=== PATIENT | female | born 1960 | race Caucasian/White ===

== ENCOUNTER 2016-08-02 12:11 | Inpatient (IN) | payer BC ==
--- NOTE | ~2016-08-02 | DS ---
Unit #: [id number] #: [id number] Patient: JESSE KRUSE [id number] [address] [address] [id number] I MR#: [id number] NAME: JESSE KRUSE ROOM: [facility] Age: 55 Sex: F Admission Date: 08/02/2016 : 1960 Discharge Date: 08/08/2016 Attending Physician: Carla Aguilera M.D. Primary Care Physician: Priya Sarmiento M.D. DISCHARGE SUMMARY REASON FOR ADMISSION 1. Acute on chronic respiratory failure. 2. Pneumonia. 3. COPD exacerbation. 4. Hyperglycemia. HISTORY/HOSPITAL COURSE This is a pleasant lady, recently in the hospital approximately 2 months ago, who has had chronic cough with vocal cord polyps. No fevers. No chills. Positive for chest pain. Presented to the emergency department, had a chest x-ray that showed left base atelectasis. No pulmonary embolism but left base persistent consolidation. Procalcitonin 0.14. The patient was admitted to the hospital for hospital-acquired pneumonia. The patient was placed on cefepime and tobramycin. The patient had a sputum sample, which was negative for culture; therefore, the patient will be discharged to finish up the course on Omnicef 300 mg p.o. b.i.d. DISCHARGE MEDICATIONS 1. Albuterol sulfate q.4 hours neb. 2. Combivent 1 puff q.i.d. 3. Pulmicort 0.5 mg b.i.d. 4. Prednisone 40 mg x1 day, 30 mg x 2 days, 20 mg x2 days, 10 mg x2 days. 5. Gabapentin 300 mg daily. 6. Topamax 50 mg b.i.d. 7. Bupropion 450 mg daily. 8. Fluoxetine 50 mg daily. 9. Lidocaine patch 5% daily. 10. Loxapine 50 mg at bedtime. 11. Promethazine DM 1 teaspoon q.8 hours p.r.n. 12. Klonopin 0.5 mg t.i.d. p.r.n. anxiety. 13. Diltiazem 60 mg b.i.d. 14. Insulin 40 units subcu a.c. 15. Lantus 90 units subcu at bedtime. 16. Aspirin 81 mg daily. 17. Hydrocodone/acetaminophen 5/325 q.6 hours as needed for pain. 18. Omnicef 300 mg p.o. b.i.d. for 3 days. DIET Constant carb diet. ACTIVITY As tolerated. Unit #: [id number] #: [id number] Patient: JESSE KRUSE FOLLOW-UP Follow up with Dr. Florez's office in approximately 2 to 3 weeks. Dictated by... Romaine Colón TD: 08/09/2016 11:45 JOB #: [id number] DISCHARGE SUMMARY Page 1 of 1 X Eben Aguilera MD X DISCHARGE SUMMARY
--- NOTE | ~2016-08-02 | HP ---
Unit #: [id number] #: [id number] Patient: JESSE KRUSE [id number] [id number] [facility]. [place], [place] [address] [id number] I MR#: [id number] NAME: JESSE KRUSE ROOM: 323 Age: 55 Sex: F Admission Date: 08/02/2016 : 1960 Attending Physician: Carla Aguilera M.D. Primary Care Physician: Priya Sarmiento M.D. HISTORY AND PHYSICAL Ms. Kruse is a pleasant lady, recently here in the hospital approximately two months ago. She has had chronic cough for that time. The patient had vocal cord polyps. They have been worse for approximately two months. No fevers, no chills, worsening cough, tightness and patient has been having chest pain. Therefore, she presented to the emergency room. She was found to have a chest x-ray, which showed left base atelectasis, mediastinal windows on CT PE showed no pulmonary embolus; however, a persistent consolidation in the left lung base is concerning for pneumonia, this was present on the previous examination. Lack of air bronchograms has progressed. Right lung infiltrate has cleared. The procalcitonin is 0.14, which is consistent with a mild infection. The cardiac enzymes are negative. INR is 1.1 so the patient is admitted for hospital acquired pneumonia. PAST MEDICAL HISTORY Significant for gastric outlet obstruction, bronchial asthma, hypertension, hyperlipidemia, depression, bipolar, neuropathic pain and diabetes. PAST SURGICAL HISTORY Significant for cardiac catheterization, cholecystectomy, hysterectomy and . FAMILY HISTORY Noncontributory. SOCIAL HISTORY No history of alcohol. No history of polysubstance use. Patient is noncontributory. She is a never smoker. No history of tobacco smoke. ALLERGIES Penicillin and sulfa. HOME MEDICATIONS 1. Albuterol neb every 4 hours. 2. Combivent 4 times a day. 3. Prednisone taper. 4. Gabapentin 600 mg a daily. 5. Lidocaine 1 patch topically daily. 6. Doxycycline 100 mg twice daily. 7. Promethazine 1 tsp every 8 hours. 8. Cardizem 60 mg twice daily. 9. Pulmicort 0.5 mg twice daily. 10. Topamax 50 mg twice daily. Unit #: [id number] #: [id number] Patient: JESSE KRUSE 11. Wellbutrin 450 mg twice daily. 12. Prozac 40 mg daily. 13. Loxapine 50 mg at bedtime. 14. Aspirin 81 mg daily. 15. Hydrocodone/acetaminophen 1 tablet every 6 hours. 16. Klonopin 0.5 mg 3 times a day. 17. Novolin 70/30 40 units three times a day before meals. 18. Lantus 90 units subcu at bedtime. PHYSICAL EXAMINATION VITAL SIGNS: Temperature 97.2, pulse 102, respiratory rate 18, blood pressure 160/92, satting 94% 2 L, ins and outs not recorded. HEENT: Extraocular movements are intact. CHEST: Clear to auscultation bilaterally. CARDIOVASCULAR: Regular rate. No gallop. ABDOMEN: Soft, nontender, nondistended. EXTREMITIES: Obese extremity shows no significant edema. Pulses are easily palpable. DIAGNOSTIC STUDIES LABORATORY STUDIES: BNP is 134. Sodium 137, potassium 3.7, BUN and creatinine 12 and 1.0. So CBC shows platelets of 317, BUN and creatinine 11.2/32.7. ASSESSMENT AND PLAN Pneumonia: This may be chronic but I believe we need to treat as a community acquired pneumonia. If we are unable to get a sputum culture, then we may need bronchoscopy eventually to rule out MAC and other associated illnesses. Dictated by Romaine Colón/sarah TD: 08/03/2016 05:28 JOB #: [id number] HISTORY AND PHYSICAL Page 1 of 1 X Eben Aguilera MD X HISTORY AND PHYSICAL
--- NOTE | ~2016-08-02 | CT16 ---
[facility] A Service of [facility] & [facility] RADIOLOGY TEXT RESULTS PATIENT: JESSE KRUSE [facility] [id number] : [birth year] UNIT #: [id number] AGE: [address]: Eben Aguilera MD SEX: F ORDER DR: [id number] [facility] [address] [facility] [address] [address]. [place], [place] [address] [id number] E MR#: [id number] Acc #: [id number] NAME: JESSE KRUSE : 1960 SEX: F STUDY DATE/TIME: 08/02/2016 14:12 UNIT: [facility] ROOM: STUDY DESCRIPTION: CT Angio Chest for PE Attending Physician: Neema Portillo M.D. Ordering Physician: Neema Portillo M.D. Primary Care Physician: Priya Sarmiento M.D. MEDICAL IMAGING REPORT This report is preliminary unless electronic signature is present EXAN CT chest with contrast with CT angiography HISTORY Shortness breath and nonproductive cough since 06/04/2016. Not improving. TECHNIQUE Axial images were obtained through the chest with contrast. 80 mL of Isovue was used. CT angiography was performed with thick sliding MIPs in the sagittal coronal projections. The study is compared to a previous examination from 06/07/[address] exam was performed with one or more of the following radiation dose reduction techniques: automatic exposure control, adjustment of mA and/or kV according to patient size, and iterative reconstruction. FINDINGS Chest images at mediastinal window show good filling of the pulmonary arteries. There are no pulmonary artery filling defects to suggest emboli. There is no evidence of pleural or pericardial fluid. There is no evidence of mediastinal or hilar adenopathy. Lung window imaging shows persistent alveolar consolidation at the left lung base posteromedially with loss of air bronchograms and mucous plugging of distal bronchi. The infiltrate and small effusion at the right base seen on the previous examination has resolved. The endobronchial mucus plugging at the left base is new since the previous CT from 06/07/2016. Both upper lung heredia are clear. IMPRESSION Persistent consolidation left lung base suspicious for pneumonia or STS. [facility] A Service of [facility] & [facility] RADIOLOGY TEXT RESULTS PATIENT: JESSE KRUSE LOCATION: [facility] [id number] : [birth year] UNIT #: [id number] AGE: [address]: Eben Aguilera MD SEX: F ORDER DR: chronic atelectasis with mucous plugging of lower lobe bronchi to this area at the left base. The infiltrate was present on the previous examination. The lack of air bronchograms is a new finding since the previous exam. The right lung base infiltrate and effusion have cleared since the previous scan of 06/07/2016. No evidence pulmonary embolism. Dictated by... Mrerick Bui M.D. THIS IS AN ELECTRONICALLY VERIFIED REPORT Merrick Bui M.D. at 08/02/2016 6:48 PM RLF/pa TD: 08/02/2016 15:45 JOB #: [id number] MEDICAL IMAGING REPORT Page 1 of 1 COPY
--- NOTE | ~2016-08-02 | EKG ---
PATIENT: JESSE KRUSE UNIT #: [id number] Ventricular Rate: 95 BPM Atrial Rate: 95 BPM P-R Interval: 154 ms QRS Duration: 104 ms Q-T Interval: 380 ms QTC Calculation(Bezet): 477 ms P [place]: 47 degrees Calculated R [place]: 76 degrees Calculated T [place]: 9 degrees Diagnosis Line: Normal sinus rhythm Diagnosis Line: Possible Left atrial enlargement Diagnosis Line: Borderline ECG Diagnosis Line: When compared with ECG of 08-JUN-2016 14:08, Diagnosis Line: Nonspecific T wave abnormality no longer evident Diagnosis Line: in Anterolateral leads Diagnosis Line: Confirmed by MARIELENA SWAN MD ([id number]) on 08/02/2016 Diagnosis Line: 11:38:10 PM INTERPRETING MD: SOSA VASQUEZ
--- NOTE | ~2016-08-02 | CR72 ---
[facility] A Service of [facility] & [facility] RADIOLOGY TEXT RESULTS PATIENT: JESSE KRUSE LOCATION: [facility] 323-01 : [birth year] UNIT #: [id number] AGE: [address]: Eben Aguilera MD SEX: F ORDER DR: [id number] [facility] [address]. [place], [place] [address] [id number] E MR#: [id number] Acc #: [id number] NAME: JESSE KRUSE : 1960 SEX: F STUDY DATE/TIME: 08/02/2016 12:02 UNIT: [facility] ROOM: STUDY DESCRIPTION: CR Chest Single View Portable Attending Physician: Neema Portillo M.D. Ordering Physician: Neema Portillo M.D. Primary Care Physician: Priya Sarmiento M.D. MEDICAL IMAGING REPORT This report is preliminary unless electronic signature is present EXAM Portable chest INDICATIONS 55-year-old female with nonproductive cough since June 04 compared with 06/11/2016 FINDINGS There is improved inspiratory volume. There is persistent consolidation or atelectasis in the left base. Heart size stable. IMPRESSION Persisting consolidation or atelectasis within the left base Dictated by... Joe Garg M.D. THIS IS AN ELECTRONICALLY VERIFIED REPORT Joe Garg M.D. at 08/04/2016 9:02 AM ALE/samra TD: 08/02/2016 13:39 JOB #: [id number] MEDICAL IMAGING REPORT Page 1 of 1 COPY
--- NOTE | ~2016-08-02 | CR63 ---
[facility] A Service of [facility] & [facility] RADIOLOGY TEXT RESULTS PATIENT: JESSE KRUSE LOCATION: [facility] 323-01 : [birth year] UNIT #: [id number] AGE: [address]: Eben Aguilera MD SEX: F ORDER DR: [id number] [facility] [address] [facility]. [place], [place] [address] [id number] I MR#: [id number] Acc #: [id number] NAME: JESSE KRUSE : 1960 SEX: F STUDY DATE/TIME: 08/06/2016 8:12 UNIT: [address] ROOM: Pending sale to [facility] STUDY DESCRIPTION: CR Chest 2 View Attending Physician: Carla Aguilera M.D. Ordering Physician: Carla Aguilera M.D. Primary Care Physician: Priya Sarmiento M.D. MEDICAL IMAGING REPORT This report is preliminary unless electronic signature is present EXAM PA and lateral chest, 08/06/2016. COMPARISON 08/04/2016 HISTORY Shortness of breath, chest congestion beginning on , 07/28/2016. FINDINGS PA and lateral views were obtained. The cardiovascular configuration is normal, and the lungs are clear. CONCLUSION No active disease. Dictated by... Torrey Ayala M.D. THIS IS AN ELECTRONICALLY VERIFIED REPORT Torrey Ayala M.D. at 08/08/2016 5:02 PM Carolina TD: 08/06/2016 12:36 JOB #: [id number] MEDICAL IMAGING REPORT Page 1 of 1 COPY
--- NOTE | ~2016-08-02 | CR72 ---
[facility] A Service of [facility] & [facility] RADIOLOGY TEXT RESULTS PATIENT: JESSE KRUSE LOCATION: [facility] 323-01 : 60 UNIT #: [id number] AGE: [address]: Eben Aguilera MD SEX: F ORDER DR: [id number] [facility] [address] [facility]. [place], [place] [address] [id number] I MR#: [id number] Acc #: [id number] NAME: JESSE KRUSE : 1960 SEX: F STUDY DATE/TIME: 08/04/2016 09:06 UNIT: [address] ROOM: [facility] STUDY DESCRIPTION: CR Chest Single View Portable Attending Physician: Carla Aguilera M.D. Ordering Physician: Carla Aguilera M.D. Primary Care Physician: Priya Sarmiento M.D. MEDICAL IMAGING REPORT This report is preliminary unless electronic signature is present EXAM Chest portable, 08/04/2016 09:06 hours HISTORY 55-year-old woman with 2-month history of shortness of air, cough and chest congestion. History of hypertension, asthma and lung disease. COMPARISON CT chest and portable chest film, 08/02/2016 FINDINGS Portable upright chest demonstrates normal cardiac, mediastinal and hilar contours. There is slightly decreased left retrocardiac density. The lungs are otherwise clear. There are no effusions. IMPRESSION There is mild decrease in medial left retrocardiac density. This is not resolved. No effusion seen. Dictated by... Thu Byrd M.D. THIS IS AN ELECTRONICALLY VERIFIED REPORT Thu Byrd M.D. at 08/04/2016 1:00 PM Nikki TD: 08/04/2016 10:25 JOB #: [id number] MEDICAL IMAGING REPORT Page 1 of 1 COPY
[2016-08-02 11:51] LABS: BASOPHIL% 0.4 % (0-2.5); EOSINOPHIL# 0.1 X10e3 (0-0.7); EOSINOPHIL% 1.1 % (0.0-7.0); HEMATOCRIT 32.7 % (35.0-45.0); HEMOGLOBIN 11.2 gm/dL (12.0-16.0); LYMPHOCYTE# 1.4 X10e3 (1.0-3.5); LYMPHOCYTE% 12.9 % (17.0-45.0); MEAN CELL VOLUME 89.8 FL (83-96); MEAN CORPUSCULAR HEMOGLOBIN 30.7 PG (28-34); MEAN CORPUSCULAR HGB CONC 34.2 g/dL (30-36); MEAN PLATELET VOLUME 8.1 FL (6.5-11.5); MONOCYTE% 9.3 % (3.0-12.0); NEUTROPHIL# 8.1 X10e3 (1.5-7.1); NEUTROPHIL% 76.3 % (40-75); PLATELET COUNT 317 X10e3 (140-420); RED BLOOD COUNT 3.64 X10e (3.90-5.30); RED CELL DISTRIBUTION WIDTH 14.6 % (11.0-15.5); WHITE BLOOD COUNT 10.6 X10e3 (4.0-10.5)
[2016-08-02 11:52] LABS: DIFF IND NO
[2016-08-02 11:57] LABS: INFLUENZA A NEG (NEG); INFLUENZA B NEG (NEG)
[~2016-08-02 12:11] MED LIST: ACTOS PO; ADVAIR 5001 DISK W/D PO; AEROCHAMBER1 PKT PO; ALBUTEROL; ALBUTEROL MININEB NEB; ALBUTEROL17 GM INH; ALPRAZOLAM PO; ASPIRIN PO; ASPIRIN81 M2 PO; ATARAX PO; ATORVASTATIN CA10 MG PO; BACTRIM DS TABL1 TA1; BACTRIM DS TABL1 TA1 PO; BENTYL10 MG; BENTYL20 MG PO; BUDESONIDE0.5 MG/2 M INH; CARDIZEM60 MG PO; CHOLESTROL MED PO; CIPRO PO; CLINDAMYCIN HC300 MG PO; CLINDAMYCIN HCL1 GM PO; CLONAZEPAM0.5 MG PO; COMBIVENT U/D3 M2 INH; COREG PO; DESYREL100 MG PO; DESYREL300 MG PO; DOXYCYCLINE HY100 M3 PO; DULERA 200 MCG/13 GM IH; FENOFIBRATE160 MG PO; FISH OIL 1,0001 CAP PO; FLAGYL PO; FLEXERIL10 M1 PO; FLUOXETINE HCL20 M1 PO; GABAPENTIN300 MG PO; GLUCOPHAGE XR500 MG PO; GLUCOTROL PO; GUAIFENESIN600 MG PO; HUMALOG100 U/M2 SUBQ; HUMULIN N300 U/3 ML SUBQ; HYDROCODON-ACE1 EAC7 PO; HYDROCODON-ACE1 EACH PO; HYDROXYZINE HCL25 M1 PO; KEFLEX500 MG PO; KETOPROFEN PO; KLONOPIN0.5 M1 PO; LEVEMIR100 U/ML SUBQ; LEVOFLOXACIN500 MG PO; LIDOCARE1 EACH TOP; LIPITOR; LIPITOR PO; LOPID600 MG PO; LORTAB 5/500 TA1 TA1 PO; LORTAB 7.5-5001 TAB PO; LOSARTAN POTASS50 MG PO; LOXAPINE PO; LOXAPINE25 MG PO; LOXAPINE5 MG; LOXAPINE5 MG PO; LOXITANE PO; MEDROL4 MG/DOSE- PO; METFORMIN PO; MEVACOR PO; MULTI-VIT/MIN P1 TAB PO; NEURONTIN PO; NEURONTIN600 MG PO; NIACIN PO; NIASPAN PO; NOVALOG 70/30 SQ; NOVOLIN 70/30 V10 M1 SQ; NOVOLIN 70/30 V10 M1 SUBQ; NOVOLIN 70/30 V10 ML INJ; NOVOLIN 70/30 V10 ML SUBQ; NOVOLIN 70100 UNITS/ SQ; NOVOLIN R100 U/ML INJ; PANTOPRAZOLE SO40 MG PO; PHENERGAN/CODEIN5 ML PO; PREDNISONE PO; PREDNISONE10 MG PO; PROMETHAZINE D118 ML PO; PROTONIX PO; PROZAC; PROZAC PO; PROZAC40 MG PO; REMERON PO; SELFEMRA20 MG PO; SINGULAIR PO; SPIRIVA18 MCG INH; SYMBICORT80 INH; TOPAMAX; TOPAMAX PO; TOPAMAX50 MG PO; TRAZODONE; TRAZODONE HCL100 MG PO; TRAZODONE HCL300 MG PO; TRAZODONE PO; TUSSIONEX PENN473 ML PO; VICODIN PO; VISTARIL; VISTARIL PO; VOLTAREN75 MG PO; WELLBUTRIN; WELLBUTRIN PO; WELLBUTRIN XL150 M2 PO; WELLBUTRIN100 MG PO; XANAX PO; ZITHROMAX PO; ZITHROMAX500 MG PO; ZOCOR PO; [UNRECOGNIZED DRUG - OTHER] PO
[2016-08-02 12:24] LABS: ALBUMIN SERUM 3.4 g/dL (3.5-5.0); BILIRUBIN, DIRECT 0.1 mg/dL (0.0-0.2); BILIRUBIN,INDIRECT 0.3 mg/dL (0.0-0.9); BILIRUBIN,TOTAL 0.4 mg/dL (0.2-2.0); CALCIUM SERUM 9.4 mg/dL (8.4-10.2); GLOM FILT RATE Estimated 63.4 mL/min (>60); POTASSIUM 3.7 mmol/L (3.5-5.1); PROTEIN TOTAL SERUM 7.6 g/dL (6.0-8.3)
[2016-08-02 12:56] LABS: POC - CKMB 5.5 ng/mL (0.0-7.9); POC - TROPONIN <0.05 ng/mL (<=0.05)
[2016-08-02] MEDS ORDERED: KLONOPIN0.5 MG PO (15:49)
[2016-08-02] MEDS ORDERED: NOVOLIN 70100 UNITS/ SUBQ (15:52)
[2016-08-02] MEDS ORDERED: LANTUS100 U/ML SUBQ (15:53)
[2016-08-03 07:09] LABS: HEMATOCRIT 29.7 % (35.0-45.0); HEMOGLOBIN 9.8 gm/dL (12.0-16.0); MEAN CELL VOLUME 92.1 FL (83-96); MEAN CORPUSCULAR HEMOGLOBIN 30.3 PG (28-34); MEAN CORPUSCULAR HGB CONC 32.9 g/dL (30-36); RED BLOOD COUNT 3.22 X10e (3.90-5.30); RED CELL DISTRIBUTION WIDTH 14.4 % (11.0-15.5); WHITE BLOOD COUNT 11.2 X10e3 (4.0-10.5)
[2016-08-03 07:42] LABS: CALCIUM SERUM 9.2 mg/dL (8.4-10.2); GLOM FILT RATE Estimated 63.4 mL/min (>60); MAGNESIUM 1.8 mg/dL (1.6-3.0); PHOSPHOROUS 3.3 mg/dL (2.5-4.6); POTASSIUM 4.3 mmol/L (3.5-5.1)
[2016-08-04 06:30] LABS: CALCIUM SERUM 9.4 mg/dL (8.4-10.2); GLOM FILT RATE Estimated 63.4 mL/min (>60); POTASSIUM 4.3 mmol/L (3.5-5.1)
[2016-08-04 06:51] LABS: HEMATOCRIT 30.1 % (35.0-45.0); HEMOGLOBIN 9.9 gm/dL (12.0-16.0); MEAN CELL VOLUME 90.6 FL (83-96); MEAN CORPUSCULAR HEMOGLOBIN 29.7 PG (28-34); MEAN CORPUSCULAR HGB CONC 32.8 g/dL (30-36); MEAN PLATELET VOLUME 8.1 FL (6.5-11.5); RED BLOOD COUNT 3.32 X10e (3.90-5.30); RED CELL DISTRIBUTION WIDTH 14.6 % (11.0-15.5)
[2016-08-05 05:36] LABS: HEMATOCRIT 31.4 % (35.0-45.0); HEMOGLOBIN 10.1 gm/dL (12.0-16.0); MEAN CELL VOLUME 91.1 FL (83-96); MEAN CORPUSCULAR HEMOGLOBIN 29.2 PG (28-34); MEAN CORPUSCULAR HGB CONC 32.1 g/dL (30-36); MEAN PLATELET VOLUME 8.2 FL (6.5-11.5); RED BLOOD COUNT 3.45 X10e (3.90-5.30); RED CELL DISTRIBUTION WIDTH 14.5 % (11.0-15.5)
[2016-08-05 05:57] LABS: CALCIUM SERUM 9.4 mg/dL (8.4-10.2); GLOM FILT RATE Estimated 63.4 mL/min (>60); POTASSIUM 3.9 mmol/L (3.5-5.1)
[2016-08-06 06:46] LABS: CALCIUM SERUM 9.5 mg/dL (8.4-10.2); GLOM FILT RATE Estimated 63.4 mL/min (>60); POTASSIUM 3.8 mmol/L (3.5-5.1)
[2016-08-08] MEDS ORDERED: OMNICEF300 MG PO (18:28)
[2016-08-08] MEDS ORDERED: PREDNISONE10 MG PO (18:29)
== END 2016-08-08 19:20 | disposition home or self-care (01) | DRG 193 ==
LOC: CED 12:11 → CEDOF 15:30 → C3A PCU 22:48
PROVIDERS: Emergency Medicine; Internal Medicine Pulmonary Disease
DX: J18.9 Pneumonia, unspecified organism (principal); J96.20 Acute and chronic respiratory failure, unspecified whether with hypoxia or hypercapnia; J44.0 Chronic obstructive pulmonary disease with (acute) lower respiratory infection; J44.1 Chronic obstructive pulmonary disease with (acute) exacerbation; E11.65 Type 2 diabetes mellitus with hyperglycemia; Y95 Nosocomial condition; Z79.82 Long term (current) use of aspirin; Z79.4 Long term (current) use of insulin; Z79.51 Long term (current) use of inhaled steroids; Z79.899 Other long term (current) drug therapy; Z88.0 Allergy status to penicillin; Z88.2 Allergy status to sulfonamides
CPT/HCPCS: 36415; 71010; 71020; 71275; 80048; 80076; 80200; 80202; 82308; 82553; 82947; 83605; 83735; 83880; 84100; 84484; 85025; 85027; 85610; 85730; 87040; 87070; 87449; 87633; 87804; 87899; 93005; 94640; 94760; 96361; 96374; 96375; 99285; J0692; J1650; J1815; J2270; J2405; J2930; J3260; J3370; Q9967